=== PATIENT | female | born 1950 | race Caucasian/White ===

== ENCOUNTER 2016-04-16 16:30 | Inpatient (IN) | payer OTHER ==
[~2016-04-16] VITALS: Ht 154.9 cm; Wt 88.8 kg
--- NOTE | ~2016-04-16 | DS ---
PATIENT'S NAME: SHALA MARTINEZ [facility] AGE: 65 Y [address] ROOM: [address] [place], [place] [address] LOCATION: GPCU ADMIT DATE: 04/16/2016 Discharge Summary DISCHARGE DATE: 04/19/2016 FAMILY PHYSICIAN: Jolly Rees MD ATTENDING PHYSICIAN: Ike Collado PRINCIPAL DISCHARGE DIAGNOSIS: Acute hepatic failure. SECONDARY DIAGNOSES: 1. Acute kidney injury. 2. Jaundice. 3. Anemia of acute blood loss. 4. Coagulopathy with vitamin K allergy. 5. Diastolic dysfunction. 6. Left ventricular outflow tract obstruction. 7. Systemic inflammatory response syndrome. 8. Abdominal pain. CONSULTATIONS: 1. Dr. Desai, the same day as the day of admission, GI. 2. Cardiology, Dr. Whit Richardson for Cardiology consult. PROCEDURES: 1. Echocardiogram, brief summary: Left ventricular ejection fraction greater than 75%. Mild concentric left ventricular hypertrophy. Left ventricular mid-cavity obstruction with near obliteration with sigmoid septum. Diastolic dysfunction grade 1. Interatrial septum appears aneurysmal. There was a positive bubble study and the IVC measured 1.89 cm with partial inspiratory collapse. Please refer to the report for further details. 2. Esophagogastroduodenoscopy on 04/18/2016 with findings of esophageal varices, gastritis, and gastric and duodenal erosions. 3. Paracentesis, 04/18/2016, with removal of 1200 mL fluid. 4. Liver biopsy, 04/18/2016, ultrasound-guided. BRIEF HISTORY: Ms. Martinez is a 65-year-old female who was being seen by Dr. Desai in the GI office when she was directly admitted to our hospital for worsening of jaundice with bilirubin of 17 and creatinine of 2.0. She has been being evaluated for the past 4 weeks by her family doctor and GI for these complaints. She had diminished appetite and multiple lab abnormalities with generalized fatigue and malaise at the time of admission. At that time, on initial evaluation, she was lethargic with abdominal distension, anorexia, and been taking minimal p.o. for the past several days. She had also been having some fever and chills as well, but she had no prior history of liver disease, blood transfusion, viral hepatitis, which she was PATIENT'S NAME: SHALA MARTINEZ [facility] AGE: 65 Y [address] ROOM: [id number] [place], [place] [address] LOCATION: GPCU ADMIT DATE: 04/16/2016 Discharge Summary DISCHARGE DATE: 04/19/2016 FAMILY PHYSICIAN: Jolly Rees MD ATTENDING PHYSICIAN: Ike Collado aware, and denied any alcohol use and new medications. Further evaluation ensued with procedures as above. She became hypotensive after the 3 procedures that she had yesterday with a drop in her hemoglobin from 9.3 to 6.9. She was transfused with 2 units of packed cells and an additional unit of FFP. She had 2 units of FFP before the procedures. Her blood pressure and heart rate responded to these and she was doing well; however, because of her multiple liver abnormalities with possible hepatorenal syndrome, we thought it best to pursue transfer to a Tertiary Center. This morning, I spoke with Dr. Shahid who is the Critical Care fellow at the [facility] in [place] and accepted the patient pending their bed availability and we are waiting a bed at this time. Since I spoke with him, her hemoglobin has gone from 8.2 to 7.0. She will be transfused with a unit of packed red cells at this time. Currently, her INR is 2.5, her pro-time is 28.5. There are no active sites of bleeding. Her bandage sites for the liver biopsy and paracentesis are clean and dry as they were this morning. Please refer to lab forms for all of her multiple laboratory abnormalities. I have discussed with the family the need for indication for transfer to higher level of care, possible need for liver transplant, although her eligibility for this would be evaluated at the [facility]. The family is in agreement with transfer at this time. DISCHARGE MEDICATIONS: 1. Zosyn 3.375 g every 8 hours. 2. Protonix drip. 3. Guaifenesin 1200 mg p.o. b.i.d. 4. Zofran q.4 p.r.n. 5. Albuterol inhaler or nebulizer q.6 p.r.n. 6. She is also receiving normal saline at 150 mL/hr. CONDITION AT DISCHARGE: Poor. DARBY ALICEA MD LM/modl PATIENT'S NAME: SHALA MARTINEZ [facility] AGE: 65 Y [address] ROOM: [place] [address] [facility] ADMIT DATE: 04/16/2016 Discharge Summary DISCHARGE DATE: 04/19/2016 FAMILY PHYSICIAN: Jolly Rees MD ATTENDING PHYSICIAN: Ike Collado /[id number] d: 04/20/16 0339 t: 04/23/16 1425, DISCHARGE SUMMARY
--- NOTE | ~2016-04-16 | ECHO ---
Transthoracic Echocardiography Report (TTE) Demographics Patient Name SHALA CASTELLANOS Date of Study 04/17/2016 Patient Number [id number] Visit Number [id number] Date of 1950 Room Number G3211 Accession Number [id number] Gender Female Age 65 year(s) Referring Amari SILVERIO Contracts Advisor Jermaine Olson RVT, Physician Negrita Moeller MD [facility] Lashay Ramires Physician Interpreting Oneal Vital MD Historic Sites Supervisor Physician Supervising Ordering Physician Amari SILVERIO MD/MLP Nurse Stress Lead Electrical Engineer Conclusions Contractility Score Summary Normal Left Ventricular contractility was noted. Summary The estimated left ventricular ejection fraction is > 75%. Mild concentric left ventricular hypertrophy. Mid-cavity obstruction with near-obliteration of left ventricular cavity. Left ventricular outflow tract obstruction with sigmoid septum. Diastolic assessment reveals Grade I diastolic dysfunction. The interatrial septum appears aneurysmal. Informed consent was obtained, bubble study was done, bubbles crossed to the left atrium suggesting a PFO or ASD. IVC measures 1.89 cm with partial inspiratory collapse. There is a mild mean gradient of 14mmHg across the aortic valve. Mild to moderate tricuspid regurgitation by color Doppler. There is mild pulmonary hypertension. The pulmonary pressure (RVSP) is 42 mmHg. The aortic root appears borderline dilated. The maximum diameter measures 2.9 cm. The ascending aorta appears mildly dilated. The maximum diameter measures 3.4 cm. Procedure Type of Study TTE procedure:2D Echocardiogram, M-Mode, Doppler , Color Doppler, Contrast study. Procedure Date Date: 04/17/2016 Start: 02:24 PM Study Location: Echo Lab Technical Quality: Adequate visualization Indications:Heart Murmur. Additional Indications:New murmur Appropriate Use Criteria: 9 Patient Status: Routine HR: 83 bpm BP: 129/76 mmHg M-Mode/2D Measurements LV Diastolic Dimension: 3.12 cm LV Systolic Dimension: 0.76 cm LV Septum Diastolic: 1.08 cm LV PW Diastolic: 1.08 cm AO Root Dimension: 2.9 cm Cardiac Output: 10.35 l/min LA Dimension: 2.7 cm EF Estimated: 75 % LVOT: 1.9 cm LVOT VTI: 44 cm RV Base: 3.37 cm LV Stroke volume: 124.69 ml RV Length: 6.35 cm TAPSE: 2.54 cm TDI-S': 21.4 cm/s Doppler Measurements AV Peak Velocity: 2.52 m/s MV Peak E-Wave: 0.86 m/s AV Peak Gradient: 25.4 mmHg MV Peak A-Wave: 1.1 m/s AV Mean Gradient: 14 mmHg MV E/A Ratio: 0.78 LVOT Peak Velocity: 1.85 m/s MV P1/2t: 73 msec TR Gradient:36.97 mmHg PV Peak Velocity: 1.14 m/s Estimated RAP:5 mmHg PV Peak Gradient: 5.2 mmHg Estimated RVSP: 42 mmHg Estimated PASP: 41.97 mmHg E' Septal Velocity: 0.06 m/s A' Septal Velocity: 0.13 m/s E' Lateral Velocity: 0.09 m/s A' Lateral Velocity: 0.15 m/s Findings Left Ventricle The left ventricle is normal in size. Mild concentric left ventricular hypertrophy. Mid-cavity obstruction with near-obliteration of left ventricular cavity. Left ventricular outflow tract obstruction with sigmoid septum. Diastolic assessment reveals Grade I diastolic dysfunction. Right Ventricle Normal right ventricle structure and function. Left Atrium Normal left atrial size. The interatrial septum appears aneurysmal. Informed consent was obtained, bubble study was done, bubbles crossed to the left atrium suggesting a PFO or ASD. Right Atrium Normal right atrial size. IVC measures 1.89 cm with partial inspiratory collapse. Mitral Valve Trivial mitral regurgitation by color Doppler. Mild mitral annular calcification. Aortic Valve The aortic valve is mildly sclerotic. Tricuspid Valve Mild to moderate tricuspid regurgitation by color Doppler. There is mild pulmonary hypertension. The pulmonary pressure (RVSP) is 42 mmHg. Pulmonic Valve Normal pulmonic valve structure and function. Pericardial Effusion No evidence of pericardial effusion. Miscellaneous Negative bubble study Pleural Effusion No evidence of pleural effusion. Contractility Score LV regional wall motion:(0-Non visualized 1-Normal 2-Hypokinesis 3-Akinesis 4-Dyskinesis 5-Aneurysm) Signature dtt: Amanuel No (cardio) dtd: 04/17/16 1424 Physician Self Edit
--- NOTE | ~2016-04-16 | HP ---
PATIENT'S NAME: SHALA CASTELLANOS [facility] AGE: 65 Y [address] ROOM: [address] [place] [address] LOCATION: [facility] ADMIT DATE: 04/16/2016 History & Physical DISCHARGE DATE: FAMILY PHYSICIAN: Jolly Rees MD ATTENDING PHYSICIAN: GEOVANY PATEL DATE OF SERVICE: CHIEF COMPLAINT: Jaundice, abdominal distention, SHASTA, and acute hepatitis. HISTORY OF PRESENT ILLNESS: This is a 65-year-old female who is direct admitted from GI office for having worsening jaundice as well as a bilirubin of 17 and creatinine 2.0 upon followup visit with Dr. Desai from . The patient reports to me that she had been having increasing yellowing of her skin over the past 4 weeks, which 4 weeks ago, she did see her family doctor who eventually referred her for gastroenterology workup and evaluation. Upon her visit today, the patient was noted to have severely jaundiced with a diminished appetite and multiple lab abnormalities and complaining of generalized fatigue and malaise over the past several weeks prompting for a direct admission. The patient today appears lethargic, complains of abdominal distention, anorexia, and has been unable to tolerate p.o. for the past several days due to this. The patient also reports increasing cough and increased lower extremity swelling over the past 4 weeks progressively worsening to this date. The patient also reports generalized fever and chills during this time as well. The patient denies knowing of any liver disease, no history of blood transfusions, and no viral hepatitis that she is aware of. The patient denies any history of heavy drinking. Denies using any medications that are new that can possibly be the cause for this. PAST MEDICAL HISTORY: Asthma, hyperlipidemia. SOCIAL HISTORY: The patient lives at home with . Denies any history of alcohol, tobacco smoking, or use of any drugs. Denies any history of requiring blood transfusions or IV drug abuse. FAMILY HISTORY: Father, brother, and sister have history of heart disease. Brother apparently has liver problems, which she cannot specify. REVIEW OF SYSTEMS: A 10-point review of systems was conducted and were all negative except as mentioned in the HPI. PATIENT'S NAME: SHALA CASTELLANOS [facility] AGE: 65 Y [address] ROOM: [id number] [place] [id number] LOCATION: [facility] ADMIT DATE: 04/16/2016 History & Physical DISCHARGE DATE: FAMILY PHYSICIAN: Jolly Rees MD ATTENDING PHYSICIAN: GEOVANY PATEL LABORATORY DATA: Significant labs: Creatinine 2.0, baseline around 1. Bilirubin 17. White blood cell count 22,000. PHYSICAL EXAMINATION: VITAL SIGNS: Afebrile, blood pressure 130/70, respiratory rate 22, pulse 108, and saturating 92% on 2 L of oxygen. GENERAL: The patient is jaundiced, lethargic appearing, but in no acute distress. HEENT: Scleral icterus present. No conjunctival pallor. Has dry mucous membranes. SKIN: Diffuse jaundice throughout. HEART: S1, S2, regular rate and rhythm. LUNGS: Diminished breath sounds, but clear to auscultation bilaterally. ABDOMEN: Mildly distended and diffuse tenderness to palpation. Positive bowel sounds. NEURO: Grossly nonfocal. MUSCULOSKELETAL: No swelling, redness, or erythema of joints in all extremities. EXTREMITIES: A +3 pitting edema bilaterally. ASSESSMENT AND PLAN: 1. Systemic inflammatory response syndrome. White blood cell count of 22,000, heart rate 108. Source in the differential includes spontaneous bacterial peritonitis versus ascending cholangitis. We will start on empiric antibiotics with Zosyn and get a CT scan of the abdomen. Of note, ultrasound of the abdomen done about 10 days ago as outpatient did not show significant ascites or findings in the liver suggestive of cirrhosis. Also, getting UA and blood culture and chest x-ray for a complete sepsis workup. If there is significant ascites, we will plan for paracentesis. 2. Acute hepatitis. Full acute hepatitis workup pending. GI Dr. Desai following as outpatient and we will invite for consultation during hospitalization as well. 3. Jaundice. Bilirubin 17 appears to be predominantly related to liver dysfunction. I will also look for possible hemolysis as the cause for this; however, the patient is not anemic, and it is more likely due to problems related to the liver. 4. Acute kidney injury. Creatinine 2.0, the patient's baseline around 1.0. The patient describes significant poor p.o. intake over the past several weeks. We will slowly give intravenous fluids and recheck kidney function. The patient showed significant Lower extremity edema and this could all be related to her liver dysfunction. PT/INR to further assess significance of liver injury and is pending. PATIENT'S NAME: SHALA CASTELLANOS [facility] AGE: 65 Y [address] ROOM: [id number] [place] [id number] LOCATION: [facility] ADMIT DATE: 04/16/2016 History & Physical DISCHARGE DATE: FAMILY PHYSICIAN: Jolly Rees MD ATTENDING PHYSICIAN: GEOVANY PATEL 5. Abdominal pain. We will make sure there is not an underlying spontaneous bacterial peritonitis causing this. If the CT scan shows ascites, we will go ahead and do the paracentesis, and do studies to rule out infection. In the meantime, continue with antibiotic and Zosyn as above. 6. Deep venous thrombosis prophylaxis. We will use sequential compression devices. MD MARILYN MULLINS/kapil /[id number] D: [id number] T: [id number] HISTORY & PHYSICAL
--- NOTE | ~2016-04-16 | CON ---
PATIENT'S NAME: SHALA CASTELLANOS [facility] AGE: 65 Y [address] ROOM: [place] [id number] LOCATION: GPCU ADMIT DATE: 04/16/2016 Consultation DISCHARGE DATE: 04/19/2016 FAMILY PHYSICIAN: Jolly Rees MD ATTENDING PHYSICIAN: Ike Collado DATE OF CONSULTATION: 04/18/2016 REASON FOR CARDIOLOGY CONSULT: Abnormal echocardiogram. HISTORY OF PRESENT ILLNESS: This is a 65-year-old female, admitted with worsening jaundice, abdominal distention, acute kidney injury, and acute hepatitis. This consult was requested due to the presence of a cardiac murmur and then her subsequently undergoing an echocardiogram with findings of a possible left ventricular mass or obstruction and a positive bubble study. She has complaints of shortness of breath, dyspnea on exertion, and sharp chest pain with exertion. She also has complaints of nausea, vomiting, diarrhea, and edema. Overall feels "poorly" and is resting in bed at this time. She is currently under the care of the Hospitalist Service as well as GI Service, and has plans to undergo an endoscopy and liver biopsy. PAST MEDICAL HISTORY: 1. Asthma. 2. Arthritis. 3. Joint stiffness. PAST SURGICAL HISTORY: 1. Tubal ligation. 2. Previous teeth extractions. FAMILY HISTORY: The patient's father had a history of diabetes mellitus and heart issues. She has 2 brothers and a sister with a history of cardiac stenting. SOCIAL HISTORY: The patient denies ever using tobacco. She also denies alcohol or illicit drug use. CURRENT MEDICATIONS: 1. Protonix IV drip. 2. Zosyn 3.375 g IV every 8 hours. 3. Mucinex 1200 mg p.o. twice daily. 4. Aldactone 25 mg p.o. daily. PATIENT'S NAME: SHALA CASTELLANOS [facility] AGE: 65 Y [address] ROOM: [address] [address] LOCATION: GPCU ADMIT DATE: 04/16/2016 Consultation DISCHARGE DATE: 04/19/2016 FAMILY PHYSICIAN: Jolly Rees MD ATTENDING PHYSICIAN: Ike Collado MEDICATION ALLERGIES: 1. Latex causing rash. 2. Vitamin K causing rash and severe swelling. REVIEW OF SYSTEMS: Pertinent positive review of systems noted in the HPI. All other review of systems evaluated and negative. DIAGNOSTICS: CMS evaluation shows sodium of 138, potassium 3.8, BUN of 25, creatinine 1.6, glucose of 63, and a magnesium of 2.2. Her echocardiogram shows an ejection fraction of greater than 75% with an RVSP of 42. She has an AV gradient of 40 mmHg. PHYSICAL EXAMINATION: VITAL SIGNS: Temperature 98.5, pulse 74, respirations 14, blood pressure 113/69, and O2 saturation 95% on room air. The patient weighs 88.8 kg. SKIN: Jaundiced, but warm and dry. EYES: Also noted to be jaundiced, but no noted xanthelasmas. ENT: Oral mucosa is pink and moist. No jugular venous distention or carotid bruits. CHEST: Respirations are even and unlabored. LUNGS: Clear to auscultation. HEART: Regular rate and rhythm. Does have the presence of a 2/6 systolic murmur. ABDOMEN: Soft and nontender. Does have hyperactive bowel sounds x4 quadrants. MUSCULOSKELETAL: Gait is normal. EXTREMITIES: Peripheral pulses palpable. No clubbing or cyanosis noted. Does have 2+ lower extremity edema present. PSYCH: Alert and oriented. Mood and affect are appropriate. IMPRESSION AND PLAN: Per Dr. Whit Richardson: 1. Systolic murmur. 2. Positive bubble study. 3. Acute hepatitis with worsening jaundice. 4. Acute kidney injury. Due to her echocardiogram findings, I do want to avoid IV vasopressors. Her left ventricular is quite hyperdynamic, and she does have an increased LVOT gradient. Of note, she is anemic and there are plans to replace packed red blood cells to help with her blood pressure and to relieve the hypotension. Once her blood pressure is stable and her liver enzymes are stable, consider PATIENT'S NAME: SHALA CASTELLANOS [facility] AGE: 65 Y [address] ROOM: [address] [address] LOCATION: GPCU ADMIT DATE: 04/16/2016 Consultation DISCHARGE DATE: 04/19/2016 FAMILY PHYSICIAN: Jolly Rees MD ATTENDING PHYSICIAN: Ike Collado beta-gwyn or calcium channel gwyn. We will continue to monitor, evaluate, and treat as appropriate. Thank you for this consult. Thank you for allowing [facility] to interact in the care of this patient. ROSA MARIA CASTILLO APRN FOR MD RADHA LOUIE/kapil /[id number] d: 04/19/162229 t: 04/24/16 1734, CONSULTATION REPORT
[2016-04-16] MEDS ORDERED: MUCINEX600 MG PO (17:08)
[2016-04-16] MEDS ORDERED: ALBUTEROL2.5 MG/31 INH (17:08)
[2016-04-16] MEDS ORDERED: SINGULAIR10 MG PO (17:09)
[2016-04-16] MEDS ORDERED: ZOFRAN ODT4 MG PO (17:09)
[2016-04-16] MEDS ORDERED: ROBITUSSIN DM120 ML PO (17:09)
[2016-04-16] MEDS ORDERED: PROVENTIL OR V6.7 GM INH ×2 (17:10→18:23)
--- NOTE | 2016-04-16 17:47 | NUR ---
PATIENT ADMITTED WITH NAUSEA, FREQUENT HEADACHES, ASTHMA, PNEUMONIA, HAYFEVER, SOB, BACK PROBLEMS, JAUNDICE AND BLOATING. AWAITING ORDERS FOR DR. JOHN FOR ADMISSION ORDERS. PATIENT HAS ALOT OF EDEMA TO LOWER LEGS, ABDOMINAL PAIN DIFFUSE. JAUNICE COLOR. NAUSEA , HASN'T EATEN A MEAL FOR A FEW DAYS, MINIMAL FLUIDS. PATIENT STATES HER URINE IS DARK YELLOW PRERNA.
[2016-04-16 20:43] LABS: HEMATOCRIT 34.6 % (33.0-46.0); HEMOGLOBIN 12.5 g/dL (10.0-15.0); MCH 33.2 pg (27.0-34.0); MCHC 36.1 gm/dL (32.0-36.5); MCV 91.8 fl (83.0-98.0); MPV 11.5 fl (9.4-12.4); PLATELET COUNT 154 K/uL (150-450); RBC 3.77 M/uL (3.50-5.50); RDW-CV 20.3 % (11.9-14.6); WBC 14.9 K/uL (4.0-11.0)
[2016-04-16 20:52] LABS: INR - (THERAPEUTIC) 2.3 (0.9-1.1); PROTIME 25.8 SECONDS (9.6-11.1)
[2016-04-16 21:00] LABS: ANION GAP 15.2 (10.0-19.0); CALCIUM 8.1 mg/dL (8.5-10.5); CREATININE 1.9 mg/dL (0.5-1.1); POTASSIUM 4.2 mMol/L (3.7-5.1); TOTAL BILIRUBIN 15.6 mg/dL (0.0-1.5); TOTAL PROTEIN 7.6 g/dL (6.0-8.4)
[2016-04-16 21:01] LABS: ALBUMIN 1.7 gm/dL (3.5-5.0)
[2016-04-16 21:19] LABS: ABSOLUTE NEUTROPHIL CT (ANC) 11.5 K/uL (1.8-7.8); LYMPHOCYTE # 2.2 K/uL (0.8-4.0); LYMPHOCYTE % 15 %; MONOCYTE # 1.2 K/uL (0.0-1.0); SEGMENTED NEUTROPHIL # 11.5 K/uL (1.8-7.8); SEGMENTED NEUTROPHIL % 77 %
[2016-04-17 06:03] LABS: HEMATOCRIT 29.3 % (33.0-46.0); HEMOGLOBIN 10.4 g/dL (10.0-15.0); MCH 32.9 pg (27.0-34.0); MCHC 35.5 gm/dL (32.0-36.5); MCV 92.7 fl (83.0-98.0); MPV 11.6 fl (9.4-12.4); PLATELET COUNT 124 K/uL (150-450); RBC 3.16 M/uL (3.50-5.50); RDW-CV 20.2 % (11.9-14.6); WBC 11.2 K/uL (4.0-11.0)
[2016-04-17 06:21] LABS: ALBUMIN 2.1 gm/dL (3.5-5.0); CALCIUM 7.9 mg/dL (8.5-10.5); CREATININE 1.8 mg/dL (0.5-1.1); MAGNESIUM 2.3 mg/dL (1.3-2.6); PHOSPHORUS 2.6 mg/dL (2.5-4.9)
[2016-04-17 06:39] LABS: BLOOD URINE 150 /UL (NEGATIVE); GLUCOSE URINE NEGATIVE (NEGATIVE); KETONE URINE NEGATIVE (NEGATIVE); LEUKOCYTES URINE 100 /UL (NEGATIVE); NITRITE URINE POSITIVE (NEGATIVE); PROTEIN URINE 30 mg/dL (NEGATIVE); TURBIDITY URINE 1+ (CLEAR); UROBILINOGEN URINE 4 mg/dL (NORMAL)
[2016-04-17 06:48] LABS: COLOR URINE OTHER (YELLOW)
[2016-04-17 07:05] LABS: ABSOLUTE NEUTROPHIL CT (ANC) 9.1 K/uL (1.8-7.8); BANDED NEUTROPHIL # 0.2 K/uL (0.0-0.1); BANDED NEUTROPHILS % 2 %; LYMPHOCYTE % 9 %; MONOCYTE # 0.8 K/uL (0.0-1.0); SEGMENTED NEUTROPHIL # 8.9 K/uL (1.8-7.8); SEGMENTED NEUTROPHIL % 79 %
--- NOTE | 2016-04-17 07:43 | NUR ---
Significant Event: Pt alert and oriented. Very jaundice. Up with A1-2 for safety. Started on protonix for possible GI bleed. Pt had become nauseated and given zofran with no relief. Had a dark brown/black thick sputum that looked to be on the blood side. Had more emesis and very dark brown/black. Pt started on protonix. Albumin q8hr, zosyn q8hr. Abd very distended and edematous. MISTI at +3-4. Given phenegran IM with relief. Voided and UA sent. Follow up:
[2016-04-17 07:48] LABS: AMORPHOUS URINE 1+ (NEGATIVE); BACTERIA URINE MODERATE (NEGATIVE); CRYSTALS URINE CALCIUM OXALATE (NEGATIVE); MUCUS URINE 2+ (NEGATIVE)
--- NOTE | 2016-04-17 13:32 | NUR ---
STUDENT NURSE CHART CHECKED BY TABLE AND DESK FINISHER IVAN ALEMAN RN BSN
--- NOTE | 2016-04-17 16:18 | NUR ---
Significant Event: Patient is alert and oriented x3. VSS- blood pressure in the low 100's. On room air. Up with 1-2PA. Voiding small amounts. MD aware- musth have 25ml/hr output, patel to be placed now. IV in the L)FA, fluids infusing. 500ml bolus given x1. Protonix drip infusing. Other IV started in the L)wrist- anterior- fluids infusing. Int. IV ABX. Has 2-d echo done today. Paracentesis was scheduled for today but is on hold- will be done tomorrow if INR is low enough. INR was 2.3. FFP ordered for 5 AM- 2 units. If INR is >1.5 please call the hospitalist. Please see chart for orders. States she has a allergy to vitamin K. Will also have an EGD in the AM. NPO in AM was the order written. Consents need signed. Cooperative with cares. Many family members at the bedside.
--- NOTE | 2016-04-17 18:13 | NUR ---
SPOKE TO PATIENT AND HER FAMILY AT THE BEDSIDE. INTRODUCED CM AND OUR ROLE. PATIENT LIVES IN OWN HOME WITH SUPPORT FROM HER FAMILY. PATIENT IS PLANNING ON RETURNING HOME ONCE SHE IS READY FOR DISCHARGE. HER FAMILY VOICE CONCERNS ABOUT HER BEING WEAK AND DO NOT FEEL SHE IS READY FOR DISCHARGE. I EXPLAINED TO THEM THAT WE WILL FOLLOW AND MAKE SURE THAT THERE IS A SAFE DISCHARGE PLAN IN PLACE.
[2016-04-17 21:32] LABS: ALBUMIN 2.8 gm/dL (3.5-5.0); TOTAL PROTEIN 6.6 g/dL (6.0-8.4)
--- NOTE | 2016-04-18 04:44 | NUR ---
Significant Event: Pt is alert and oriented. Pt was hypotensive with SBP's 95-106. RA. IV to the L)FA and R)FA, with IVF running. Saldivar draining tea colored urine, are to call hospitalist if urine is less than 25mls/hour. Pt is very jaundice. Ambulates 2 assist. 2 units of FFP will be given at 0500, paracentesis to be done today, we are to call if INR is greater than 1.5. NPO since midnight for the EGD that is being done today, consents signed and checklist started. Pt has many family members throughout the day, but may need to be told that the pt needs rest. Daughter and at bedside tonight. Follow Up: Continue to monitor IV sites. Try to be in the room when doctor rounds, family asks many questions.
[2016-04-18 05:56] LABS: HEMATOCRIT 25.3 % (33.0-46.0); MCH 33.6 pg (27.0-34.0); MCHC 35.6 gm/dL (32.0-36.5); MCV 94.4 fl (83.0-98.0); MPV 11.6 fl (9.4-12.4); RBC 2.68 M/uL (3.50-5.50); RDW-CV 20.7 % (11.9-14.6); WBC 6.1 K/uL (4.0-11.0)
[2016-04-18 05:58] LABS: PLATELET COUNT 79 K/uL (150-450)
[2016-04-18 06:11] LABS: ALBUMIN 2.8 gm/dL (3.5-5.0); ANION GAP 14.8 (10.0-19.0); CALCIUM 7.9 mg/dL (8.5-10.5); CREATININE 1.6 mg/dL (0.5-1.1); MAGNESIUM 2.2 mg/dL (1.3-2.6); PHOSPHORUS 2.4 mg/dL (2.5-4.9); POTASSIUM 3.8 mMol/L (3.7-5.1)
[2016-04-18 07:03] LABS: ABSOLUTE NEUTROPHIL CT (ANC) 4.3 K/uL (1.8-7.8); BANDED NEUTROPHIL # 0.1 K/uL (0.0-0.1); BANDED NEUTROPHILS % 2 %; LYMPHOCYTE # 0.9 K/uL (0.8-4.0); LYMPHOCYTE % 14 %; MONOCYTE # 0.7 K/uL (0.0-1.0); SEGMENTED NEUTROPHIL # 4.2 K/uL (1.8-7.8); SEGMENTED NEUTROPHIL % 69 %
[2016-04-18 10:11] LABS: BASOPHIL % 0.6 %; EOSINOPHIL # 0.2 K/uL (0.0-0.5); EOSINOPHIL % 3.4 %; HEMATOCRIT 26.3 % (33.0-46.0); HEMOGLOBIN 9.2 g/dL (10.0-15.0); IMMATURE GRANULOCYTE # 0.3 K/uL (0.0-0.3); LYMPHOCYTE # 1.2 K/uL (0.8-4.0); LYMPHOCYTE % 18.5 %; MCH 33.2 pg (27.0-34.0); MCV 94.9 fl (83.0-98.0); MONOCYTE # 0.7 K/uL (0.0-1.0); MONOCYTE % 10.3 %; MPV 11.6 fl (9.4-12.4); NEUTROPHIL # (ANC) 4.2 K/uL (1.8-7.8); NEUTROPHIL % 63.2 %; NRBC % 0 /100WBC (0-0.00); PLATELET COUNT 81 K/uL (150-450); RBC 2.77 M/uL (3.50-5.50); RDW-CV 20.8 % (11.9-14.6); WBC 6.7 K/uL (4.0-11.0)
[2016-04-18 10:35] LABS: INR - (THERAPEUTIC) 2.1 (0.9-1.1); PROTIME 23.5 SECONDS (9.6-11.1)
--- NOTE | 2016-04-18 11:25 | NUR ---
STUDENT NURSE CHARTING CHECKED BY LEAD LAYING AND GLUING MACHINE OPERATOR IVAN ALEMAN RN BSN
[2016-04-18 14:15] LABS: PROTIME 21.8 SECONDS (9.6-11.1)
[2016-04-18 14:22] LABS: ALPHA-1-ANTITRYPSIN 86 mg/dL (100-200); CERULOPLASMIN 21 mg/dL (7-220)
[2016-04-18 14:41] LABS: PERITONEAL FLUID TURBIDITY CLEAR (CLEAR)
[2016-04-18 14:45] LABS: AMYLASE - FLUID 30 IU/L
[2016-04-18 15:28] LABS: % PERITONEAL FLUID MONO/MACRO 57 % (0-0); % PERITONEAL FLUID NEUT 22 % (0-25)
[2016-04-18 17:48] LABS: HEMATOCRIT 20.1 % (33.0-46.0); HEMOGLOBIN 6.9 g/dL (10.0-15.0)
[2016-04-18 18:05] LABS: ANION GAP 12.1 (10.0-19.0); CALCIUM 7.7 mg/dL (8.5-10.5); CREATININE 1.7 mg/dL (0.5-1.1); POTASSIUM 4.1 mMol/L (3.7-5.1)
--- NOTE | 2016-04-18 19:50 | NUR ---
Significant event: Patient is alert and oriented. VSS earlier in shift. On room air. Has Iv's to left and 2 to the right forearms. Had an EGD this morning and then had a liver bx and paracentesis. Took 1200ml off of abdomen. Patient Vss stable upon arrival to floor, upon the 2 30-min b/p check she was hypotensive, hospitalist called and gave 2-500ml boluses of normal saline. Did labs, will need 2 units of PRBC. Remains hypotensive upon arrival of cnc machinist 2nd shift, will continue to monitor b/p and give blood NORBERTO. Patient has a patel cath in place which is patent. Pt has jaundice skin and sclera. Complains of mid abd pain, tried warm blankets, and now ice is in place. Pt is nauseated. Unable to give anything at this time due to blood pressure. Patient's surgical site is to the left flank from liver bx. It is covered with gauze and tegaderm and is C/D/I. Has remained coherent thoroughout and able to answer questions.
--- NOTE | 2016-04-18 23:03 | NUR ---
PATIENT WAS HYPOTENSIVE UPON REPORT FROM DAY NURSE. BLOOD PRESSURE IN 80/50S. HEART RATE IN 90S. ON ROOM AIR. TELEMETRY PLACED. BLOOD ORDER SENT DOWN TO LAB STAT. PRBCS STARTED AT 1943 WHEN LAB WAS DONE GETTING BLOOD READY. AFTER 15 MIN. BLOOD VITALS BLOOD PRESSURE WAS 90/59. PATIENT AFEBRILE. DR. ALICEA STATED SHE WANTED HER PATIENT TO BE SAFE AND SHE ORDERED TO TRANSFER TO PCU TO BE MONITORED MORE CLOSELY. REPORT GIVEN TO YANIRA VALENTINE AND TRANSFERRED AT 2034. YANIRA ENCOURAGED TO CALL WITH QUESTIONS.
--- NOTE | 2016-04-19 04:51 | NUR ---
Significant Event: Patient A/Ox3. Somewhat hypotensive most of shift, but an improvement from when she was on [facility]. Patient is very jaundiced. Hgb earlier today was 6.9 which was a drop from 9.2. 1 unit PRBC transfused followed by 1 unit FFP and 1 more unit of PRBC. No reactions. Patient's blood pressures have improved and have been 100s-110s over the past few hours. Total UOP for this shift was 450. Patient has 3+ edema to lower extremities. Paracentesis yesterday with 1200ml removed. EGD yesterday. Liver biopsy yesterday. Patient was very nauseous upon arriving to the floor. Once blood pressures were stable, gave Zofran 4mg and patient now feels much better. Protonix gtt running at 10ml/hr. NS at 150ml/hr. Patient on 1L due to increased oxygen needs earlier in the night, but should be able to be weaned back to room air today. Follow Up: Continue plan of care. Monitor Hgb.
[2016-04-19 04:57] LABS: HEMATOCRIT 23.7 % (33.0-46.0); HEMOGLOBIN 8.2 g/dL (10.0-15.0); MCH 31.5 pg (27.0-34.0); MCHC 34.6 gm/dL (32.0-36.5); MCV 91.2 fl (83.0-98.0); MPV 10.9 fl (9.4-12.4); PLATELET COUNT 70 K/uL (150-450); RDW-CV 21.4 % (11.9-14.6); WBC 13.6 K/uL (4.0-11.0)
[2016-04-19 05:40] LABS: BANDED NEUTROPHIL # 0.5 K/uL (0.0-0.1); BANDED NEUTROPHILS % 4 %; LYMPHOCYTE # 0.8 K/uL (0.8-4.0); LYMPHOCYTE % 6 %; MONOCYTE # 0.8 K/uL (0.0-1.0); SEGMENTED NEUTROPHIL # 11.4 K/uL (1.8-7.8); SEGMENTED NEUTROPHIL % 84 %
[2016-04-19 07:02] LABS: ALBUMIN 3.1 gm/dL (3.5-5.0); CALCIUM 8.1 mg/dL (8.5-10.5); CREATININE 1.8 mg/dL (0.5-1.1); MAGNESIUM 2.1 mg/dL (1.3-2.6); PHOSPHORUS 3.6 mg/dL (2.5-4.9); TOTAL BILIRUBIN 13.7 mg/dL (0.0-1.5); TOTAL PROTEIN 5.6 g/dL (6.0-8.4)
[2016-04-19 07:04] LABS: ANION GAP 18.1 (10.0-19.0); POTASSIUM 5.1 mMol/L (3.7-5.1)
[2016-04-19 11:06] LABS: HEMATOCRIT 20.8 % (33.0-46.0)
[2016-04-19 11:17] LABS: INR - (THERAPEUTIC) 2.5 (0.9-1.1); PROTIME 28.6 SECONDS (9.6-11.1)
--- NOTE | 2016-04-19 14:47 | NUR ---
Call from Hali Ross with [facility], she states that they are looking to transport Issac to [facility] later today. I connected with RN Libby, obtained the needed paperwork and placed it on the chart for Dr. Brown to fill out. Libby states that per Dr. Brown, [facility] won't have a bed until later this evening. I let her know this was fine. I did call and talk with store warehouse associate at [facility], Lavelle, faxed her over facesheet on Issac. She again stated that they didn't have a bed at this time, but Dr. Romulo hSahid had accepted Issac when she was ready to come to them. Lavelle tells me that she will call the [facility] when they have a bed open so we can send Issac to them. I tentatively set up an ambulance transfer for 1800 today with Ellen marcos in EMS. She is currently working on getting a crew together to transport Issac to [facility] later this even. She will call me back when a crew is confirmed and which one it will be. Family and patient are all in agreement with transfer to [facility] later this evening.
--- NOTE | 2016-04-19 17:32 | NUR ---
Transfer Note: A/Ox3. SBP-90-100s with MAPS >60. P-90-110s. 100.3 temp that has since decreased to 98.9. Room air with saturations low to mid 90s. Tachypnic at times. L) WRist IV running NS at 150ml/hr and protonix at 10mg/Hr. R) AFA running zyvox at 150ml/hr. L) AFA saline locked. Phan draining tea colored urine 150ml out this shift. Patient has generalized jaundice. Denies pain and SOB. Decreased appetite. Zofran given x1 with relif for nausea. 1 Units of PRBC given this shift for HBG of 7.0. Patient has been bedrest. No BM since the . Hypoactive bowel sounds.
== END 2016-04-19 18:25 | disposition hospice, home (50) | DRG 442 ==
LOC: GMSU 16:31 → GPCU 04-18 20:37
PROVIDERS: Internal Medicine; Internal Medicine Adolescent Medicine; Physician Assistant; Radiology Diagnostic Radiology; ADMIT Internal Medicine
PROC: 0FB13ZX Excision of Right Lobe Liver, Percutaneous Approach, Diagnostic (ICD-10-PCS; principal; 2016-04-18)
PROC: 0W9G3ZX Drainage of Peritoneal Cavity, Percutaneous Approach, Diagnostic (ICD-10-PCS; 2016-04-18)
PROC: 30233N1 Transfusion of Nonautologous Red Blood Cells into Peripheral Vein, Percutaneous Approach (ICD-10-PCS; 2016-04-18)
PROC: 30233K1 Transfusion of Nonautologous Frozen Plasma into Peripheral Vein, Percutaneous Approach (ICD-10-PCS; 2016-04-18)
DX: K72.00 Acute and subacute hepatic failure without coma (principal); N17.9 Acute kidney failure, unspecified; D68.9 Coagulation defect, unspecified; K26.9 Duodenal ulcer, unspecified as acute or chronic, without hemorrhage or perforation; R18.8 Other ascites; D62 Acute posthemorrhagic anemia; I85.00 Esophageal varices without bleeding; Z91.09 Other allergy status, other than to drugs and biological substances; K29.70 Gastritis, unspecified, without bleeding; K25.9 Gastric ulcer, unspecified as acute or chronic, without hemorrhage or perforation; J45.909 Unspecified asthma, uncomplicated; E78.5 Hyperlipidemia, unspecified; M19.90 Unspecified osteoarthritis, unspecified site; K75.4 Autoimmune hepatitis
CPT/HCPCS: C9113; J1644; J2020; J2405; J2543; J2550; J7030; J7040; J7050; P9016; P9017; P9047

== ENCOUNTER → 2016-04-16 | Outpatient (CLI) | payer OTHER, SELFPAY ==
[~2016-04-16] MED LIST: ALBUTEROL2.5 MG/31 INH; MUCINEX600 MG PO; PROVENTIL OR V6.7 GM INH; ROBITUSSIN DM120 ML PO; SINGULAIR10 MG PO; ZOFRAN ODT4 MG PO
[2016-04-16 16:05] LABS: INR - (THERAPEUTIC) 2.2 (0.9-1.1); PROTIME 24.9 SECONDS (9.6-11.1)
== END | disposition disaster alternative care site (69) ==
LOC: LGSMG 15:50
PROVIDERS: Internal Medicine Adolescent Medicine
DX: R17 Unspecified jaundice (principal)

== ENCOUNTER → 2016-06-04 | Outpatient (CLI) | payer OTHER ==
[2016-06-04 11:17] LABS: HEMOGLOBIN 9.6 g/dL (10.0-15.0); MCH 30.3 pg (27.0-34.0); MCV 95.3 fl (83.0-98.0); MPV 9.4 fl (9.4-12.4); RBC 3.17 M/uL (3.50-5.50); WBC 6.1 K/uL (4.0-11.0)
[2016-06-04 11:18] LABS: HEMATOCRIT 30.2 % (33.0-46.0); MCHC 31.8 gm/dL (32.0-36.5); PLATELET COUNT 427 K/uL (150-450); RDW-CV 18.2 % (11.9-14.6)
[2016-06-04 11:33] LABS: ALBUMIN 3.5 gm/dL (3.5-5.0); ANION GAP 13.8 (10.0-19.0); CALCIUM 9.3 mg/dL (8.5-10.5); CREATININE 1.4 mg/dL (0.5-1.1); MAGNESIUM 1.9 mg/dL (1.8-2.6); PHOSPHORUS 4.5 mg/dL (2.5-4.9); POTASSIUM 4.8 mMol/L (3.7-5.1); TOTAL BILIRUBIN 0.9 mg/dL (0.0-1.5); TOTAL PROTEIN 7.2 g/dL (6.0-8.4)
[2016-06-04 12:06] LABS: ABSOLUTE NEUTROPHIL CT (ANC) 5.2 K/uL (1.8-7.8); BANDED NEUTROPHIL # 0.2 K/uL (0.0-0.1); BANDED NEUTROPHILS % 4 %; LYMPHOCYTE # 0.5 K/uL (0.8-4.0); LYMPHOCYTE % 9 %; MONOCYTE # 0.2 K/uL (0.0-1.0); SEGMENTED NEUTROPHIL # 4.9 K/uL (1.8-7.8); SEGMENTED NEUTROPHIL % 81 %
== END ==
LOC: LHHCN 10:53
PROVIDERS: Internal Medicine Gastroenterology
DX: Z94.4 Liver transplant status (principal)

== ENCOUNTER → 2016-06-07 | Outpatient (CLI) | payer OTHER ==
[2016-06-07 10:31] LABS: HEMATOCRIT 28.2 % (33.0-46.0); HEMOGLOBIN 8.9 g/dL (10.0-15.0); MCH 30.2 pg (27.0-34.0); MCHC 31.6 gm/dL (32.0-36.5); MCV 95.6 fl (83.0-98.0); MPV 9.9 fl (9.4-12.4); PLATELET COUNT 335 K/uL (150-450); RBC 2.95 M/uL (3.50-5.50); RDW-CV 18.5 % (11.9-14.6); WBC 4.7 K/uL (4.0-11.0)
[2016-06-07 10:40] LABS: ALBUMIN 3.2 gm/dL (3.5-5.0); ANION GAP 13.1 (10.0-19.0); CALCIUM 8.9 mg/dL (8.5-10.5); CREATININE 1.6 mg/dL (0.5-1.1); MAGNESIUM 1.9 mg/dL (1.8-2.6); PHOSPHORUS 4.1 mg/dL (2.5-4.9); POTASSIUM 5.1 mMol/L (3.7-5.1); TOTAL BILIRUBIN 0.7 mg/dL (0.0-1.5)
[2016-06-07 11:03] LABS: ABSOLUTE NEUTROPHIL CT (ANC) 4.3 K/uL (1.8-7.8); BANDED NEUTROPHIL # 0.1 K/uL (0.0-0.1); BANDED NEUTROPHILS % 3 %; LYMPHOCYTE # 0.2 K/uL (0.8-4.0); LYMPHOCYTE % 4 %; MONOCYTE # 0.1 K/uL (0.0-1.0); SEGMENTED NEUTROPHIL # 4.1 K/uL (1.8-7.8); SEGMENTED NEUTROPHIL % 88 %
== END ==
LOC: LHHCN 10:13
PROVIDERS: Family Medicine
DX: Z94.4 Liver transplant status (principal); Z79.899 Other long term (current) drug therapy; T86.9 Complication of unspecified transplanted organ and tissue

== ENCOUNTER → 2016-06-11 | Outpatient (CLI) | payer OTHER ==
[2016-06-11 10:42] LABS: MCH 30.3 pg (27.0-34.0); MCV 97.6 fl (83.0-98.0); MPV 10.3 fl (9.4-12.4); RBC 2.97 M/uL (3.50-5.50); RDW-CV 18.9 % (11.9-14.6); WBC 3.9 K/uL (4.0-11.0)
[2016-06-11 10:46] LABS: PLATELET COUNT 248 K/uL (150-450)
[2016-06-11 10:55] LABS: ALBUMIN 3.3 gm/dL (3.5-5.0); ANION GAP 15.9 (10.0-19.0); CALCIUM 8.8 mg/dL (8.5-10.5); CREATININE 1.5 mg/dL (0.5-1.1); MAGNESIUM 1.9 mg/dL (1.8-2.6); PHOSPHORUS 4.4 mg/dL (2.5-4.9); POTASSIUM 4.9 mMol/L (3.7-5.1); TOTAL BILIRUBIN 0.7 mg/dL (0.0-1.5); TOTAL PROTEIN 6.6 g/dL (6.0-8.4)
[2016-06-11 11:58] LABS: ABSOLUTE NEUTROPHIL CT (ANC) 3.5 K/uL (1.8-7.8); BANDED NEUTROPHIL # 0.1 K/uL (0.0-0.1); BANDED NEUTROPHILS % 2 %; LYMPHOCYTE # 0.2 K/uL (0.8-4.0); LYMPHOCYTE % 5 %; MONOCYTE # 0.1 K/uL (0.0-1.0); SEGMENTED NEUTROPHIL # 3.4 K/uL (1.8-7.8); SEGMENTED NEUTROPHIL % 87 %
== END ==
LOC: LHHCN 10:28
PROVIDERS: Family Medicine
DX: Z94.4 Liver transplant status (principal); Z79.899 Other long term (current) drug therapy; T86.9 Complication of unspecified transplanted organ and tissue

== ENCOUNTER → 2016-06-14 | Outpatient (CLI) | payer OTHER ==
[2016-06-14 10:59] LABS: ALBUMIN 3.3 gm/dL (3.5-5.0); ANION GAP 12.8 (10.0-19.0); CALCIUM 8.8 mg/dL (8.5-10.5); CREATININE 1.8 mg/dL (0.5-1.1); MAGNESIUM 1.8 mg/dL (1.8-2.6); PHOSPHORUS 3.9 mg/dL (2.5-4.9); POTASSIUM 4.8 mMol/L (3.7-5.1); TOTAL BILIRUBIN 0.6 mg/dL (0.0-1.5); TOTAL PROTEIN 6.8 g/dL (6.0-8.4)
[2016-06-14 11:22] LABS: HEMATOCRIT 27.7 % (33.0-46.0); HEMOGLOBIN 8.7 g/dL (10.0-15.0); MCH 30.9 pg (27.0-34.0); MCHC 31.4 gm/dL (32.0-36.5); MCV 98.2 fl (83.0-98.0); MPV 10.3 fl (9.4-12.4); PLATELET COUNT 228 K/uL (150-450); RBC 2.82 M/uL (3.50-5.50); RDW-CV 18.8 % (11.9-14.6); WBC 3.7 K/uL (4.0-11.0)
[2016-06-14 12:33] LABS: ABSOLUTE NEUTROPHIL CT (ANC) 3.2 K/uL (1.8-7.8); BANDED NEUTROPHIL # 0.1 K/uL (0.0-0.1); BANDED NEUTROPHILS % 3 %; LYMPHOCYTE # 0.3 K/uL (0.8-4.0); LYMPHOCYTE % 8 %; MONOCYTE # 0.2 K/uL (0.0-1.0); SEGMENTED NEUTROPHIL # 3.1 K/uL (1.8-7.8); SEGMENTED NEUTROPHIL % 83 %
== END ==
LOC: LHHCN 10:37
PROVIDERS: Family Medicine
DX: Z94.4 Liver transplant status (principal)

== ENCOUNTER → 2016-06-18 | Outpatient (CLI) | payer OTHER ==
[2016-06-18 10:07] LABS: ALBUMIN 3.3 gm/dL (3.5-5.0); ANION GAP 12.6 (10.0-19.0); CALCIUM 8.7 mg/dL (8.5-10.5); CREATININE 1.5 mg/dL (0.5-1.1); HEMATOCRIT 28.6 % (33.0-46.0); HEMOGLOBIN 9.1 g/dL (10.0-15.0); MAGNESIUM 1.8 mg/dL (1.8-2.6); MCHC 31.8 gm/dL (32.0-36.5); MCV 97.3 fl (83.0-98.0); MPV 9.7 fl (9.4-12.4); PHOSPHORUS 4.3 mg/dL (2.5-4.9); PLATELET COUNT 216 K/uL (150-450); POTASSIUM 4.6 mMol/L (3.7-5.1); RBC 2.94 M/uL (3.50-5.50); TOTAL BILIRUBIN 0.6 mg/dL (0.0-1.5); TOTAL PROTEIN 6.8 g/dL (6.0-8.4)
[2016-06-18 10:38] LABS: ABSOLUTE NEUTROPHIL CT (ANC) 3.4 K/uL (1.8-7.8); BANDED NEUTROPHIL # 0.1 K/uL (0.0-0.1); BANDED NEUTROPHILS % 3 %; LYMPHOCYTE # 0.2 K/uL (0.8-4.0); LYMPHOCYTE % 5 %; MONOCYTE # 0.4 K/uL (0.0-1.0); SEGMENTED NEUTROPHIL # 3.3 K/uL (1.8-7.8); SEGMENTED NEUTROPHIL % 82 %
== END ==
LOC: LHHCN 09:41
PROVIDERS: Internal Medicine Gastroenterology
DX: Z94.4 Liver transplant status (principal)

== ENCOUNTER → 2016-06-21 | Outpatient (CLI) | payer OTHER ==
[2016-06-21 10:21] LABS: MCH 31.6 pg (27.0-34.0); MCHC 32.1 gm/dL (32.0-36.5); MCV 98.2 fl (83.0-98.0); MPV 9.9 fl (9.4-12.4); PLATELET COUNT 224 K/uL (150-450); RBC 2.85 M/uL (3.50-5.50); RDW-CV 19.2 % (11.9-14.6); WBC 4.3 K/uL (4.0-11.0)
[2016-06-21 10:33] LABS: ALBUMIN 3.3 gm/dL (3.5-5.0); ANION GAP 9.7 (10.0-19.0); CALCIUM 8.8 mg/dL (8.5-10.5); CREATININE 1.7 mg/dL (0.5-1.1); MAGNESIUM 1.7 mg/dL (1.8-2.6); POTASSIUM 4.7 mMol/L (3.7-5.1); TOTAL BILIRUBIN 0.5 mg/dL (0.0-1.5); TOTAL PROTEIN 6.7 g/dL (6.0-8.4)
[2016-06-21 11:02] LABS: ABSOLUTE NEUTROPHIL CT (ANC) 3.5 K/uL (1.8-7.8); BANDED NEUTROPHIL # 0.1 K/uL (0.0-0.1); BANDED NEUTROPHILS % 2 %; LYMPHOCYTE # 0.3 K/uL (0.8-4.0); LYMPHOCYTE % 8 %; MONOCYTE # 0.3 K/uL (0.0-1.0); SEGMENTED NEUTROPHIL # 3.4 K/uL (1.8-7.8); SEGMENTED NEUTROPHIL % 80 %
== END ==
LOC: LHHCN 09:54
PROVIDERS: Internal Medicine Gastroenterology
DX: Z94.4 Liver transplant status (principal)

== ENCOUNTER → 2016-06-25 | Outpatient (CLI) | payer OTHER ==
[2016-06-25 10:40] LABS: HEMATOCRIT 29.2 % (33.0-46.0); HEMOGLOBIN 9.2 g/dL (10.0-15.0); MCHC 31.5 gm/dL (32.0-36.5); MCV 98.3 fl (83.0-98.0); MPV 10.1 fl (9.4-12.4); PLATELET COUNT 245 K/uL (150-450); RBC 2.97 M/uL (3.50-5.50); WBC 4.3 K/uL (4.0-11.0)
[2016-06-25 10:51] LABS: ALBUMIN 3.4 gm/dL (3.5-5.0); ANION GAP 14.5 (10.0-19.0); CALCIUM 8.7 mg/dL (8.5-10.5); CREATININE 1.5 mg/dL (0.5-1.1); PHOSPHORUS 3.9 mg/dL (2.5-4.9); POTASSIUM 4.5 mMol/L (3.7-5.1); TOTAL BILIRUBIN 0.4 mg/dL (0.0-1.5); TOTAL PROTEIN 6.8 g/dL (6.0-8.4)
[2016-06-25 11:55] LABS: ABSOLUTE NEUTROPHIL CT (ANC) 3.9 K/uL (1.8-7.8); BANDED NEUTROPHIL # 0.1 K/uL (0.0-0.1); BANDED NEUTROPHILS % 3 %; LYMPHOCYTE # 0.2 K/uL (0.8-4.0); LYMPHOCYTE % 5 %; MONOCYTE # 0.1 K/uL (0.0-1.0); SEGMENTED NEUTROPHIL # 3.8 K/uL (1.8-7.8); SEGMENTED NEUTROPHIL % 88 %
== END ==
LOC: LHHCN 10:32
PROVIDERS: Internal Medicine Gastroenterology
DX: Z94.9 Transplanted organ and tissue status, unspecified (principal); Z79.899 Other long term (current) drug therapy; T86.9 Complication of unspecified transplanted organ and tissue

== ENCOUNTER → 2016-06-28 | Outpatient (CLI) | payer OTHER ==
[2016-06-28 10:20] LABS: HEMATOCRIT 29.4 % (33.0-46.0); HEMOGLOBIN 9.1 g/dL (10.0-15.0); MCH 30.5 pg (27.0-34.0); MCV 98.7 fl (83.0-98.0); MPV 9.8 fl (9.4-12.4); PLATELET COUNT 246 K/uL (150-450); RBC 2.98 M/uL (3.50-5.50); RDW-CV 18.9 % (11.9-14.6); WBC 4.2 K/uL (4.0-11.0)
[2016-06-28 10:33] LABS: ALBUMIN 3.4 gm/dL (3.5-5.0); ANION GAP 13.9 (10.0-19.0); CALCIUM 8.8 mg/dL (8.5-10.5); CREATININE 1.6 mg/dL (0.5-1.1); MAGNESIUM 1.9 mg/dL (1.8-2.6); POTASSIUM 4.9 mMol/L (3.7-5.1); TOTAL BILIRUBIN 0.4 mg/dL (0.0-1.5); TOTAL PROTEIN 6.6 g/dL (6.0-8.4)
[2016-06-28 11:10] LABS: ABSOLUTE NEUTROPHIL CT (ANC) 3.1 K/uL (1.8-7.8); BANDED NEUTROPHIL # 0.1 K/uL (0.0-0.1); BANDED NEUTROPHILS % 3 %; LYMPHOCYTE # 0.8 K/uL (0.8-4.0); LYMPHOCYTE % 18 %; MONOCYTE # 0.3 K/uL (0.0-1.0); SEGMENTED NEUTROPHIL # 2.9 K/uL (1.8-7.8); SEGMENTED NEUTROPHIL % 70 %
== END | disposition disaster alternative care site (69) ==
LOC: LHHCN 10:16
PROVIDERS: Internal Medicine Gastroenterology
DX: Z94.4 Liver transplant status (principal); Z79.899 Other long term (current) drug therapy; T86.9 Complication of unspecified transplanted organ and tissue

== ENCOUNTER → 2016-07-02 | Outpatient (CLI) | payer OTHER ==
[2016-07-02 10:02] LABS: ALBUMIN 3.5 gm/dL (3.5-5.0); ANION GAP 14.5 (10.0-19.0); CALCIUM 8.8 mg/dL (8.5-10.5); CREATININE 1.5 mg/dL (0.5-1.1); MAGNESIUM 1.9 mg/dL (1.8-2.6); PHOSPHORUS 4.5 mg/dL (2.5-4.9); POTASSIUM 4.5 mMol/L (3.7-5.1); TOTAL BILIRUBIN 0.4 mg/dL (0.0-1.5); TOTAL PROTEIN 6.7 g/dL (6.0-8.4)
[2016-07-02 10:14] LABS: HEMATOCRIT 28.8 % (33.0-46.0); HEMOGLOBIN 9.2 g/dL (10.0-15.0); MCH 31.6 pg (27.0-34.0); MCHC 31.9 gm/dL (32.0-36.5); MPV 9.7 fl (9.4-12.4); PLATELET COUNT 274 K/uL (150-450); RBC 2.91 M/uL (3.50-5.50); RDW-CV 18.9 % (11.9-14.6); WBC 3.2 K/uL (4.0-11.0)
[2016-07-02 11:39] LABS: ABSOLUTE NEUTROPHIL CT (ANC) 2.4 K/uL (1.8-7.8); BANDED NEUTROPHIL # 0.1 K/uL (0.0-0.1); BANDED NEUTROPHILS % 2 %; LYMPHOCYTE # 0.3 K/uL (0.8-4.0); LYMPHOCYTE % 10 %; MONOCYTE # 0.3 K/uL (0.0-1.0); SEGMENTED NEUTROPHIL # 2.3 K/uL (1.8-7.8); SEGMENTED NEUTROPHIL % 73 %
== END ==
LOC: LHHCN 09:38
PROVIDERS: Internal Medicine Gastroenterology
DX: Z94.4 Liver transplant status (principal); Z79.899 Other long term (current) drug therapy; T86.9 Complication of unspecified transplanted organ and tissue

== ENCOUNTER → 2016-07-05 | Outpatient (CLI) | payer OTHER ==
[2016-07-05 11:16] LABS: HEMATOCRIT 30.1 % (33.0-46.0); HEMOGLOBIN 9.5 g/dL (10.0-15.0); MCH 31.5 pg (27.0-34.0); MCHC 31.6 gm/dL (32.0-36.5); MCV 99.7 fl (83.0-98.0); MPV 9.8 fl (9.4-12.4); PLATELET COUNT 257 K/uL (150-450); RBC 3.02 M/uL (3.50-5.50); RDW-CV 18.6 % (11.9-14.6); WBC 3.4 K/uL (4.0-11.0)
[2016-07-05 11:19] LABS: ALBUMIN 3.6 gm/dL (3.5-5.0); ANION GAP 16.9 (10.0-19.0); CALCIUM 8.7 mg/dL (8.5-10.5); CREATININE 1.7 mg/dL (0.5-1.1); MAGNESIUM 1.8 mg/dL (1.8-2.6); PHOSPHORUS 4.2 mg/dL (2.5-4.9); POTASSIUM 4.9 mMol/L (3.7-5.1); TOTAL BILIRUBIN 0.4 mg/dL (0.0-1.5); TOTAL PROTEIN 6.8 g/dL (6.0-8.4)
[2016-07-05 12:25] LABS: ABSOLUTE NEUTROPHIL CT (ANC) 2.6 K/uL (1.8-7.8); LYMPHOCYTE # 0.5 K/uL (0.8-4.0); LYMPHOCYTE % 15 %; MONOCYTE # 0.2 K/uL (0.0-1.0); SEGMENTED NEUTROPHIL # 2.6 K/uL (1.8-7.8); SEGMENTED NEUTROPHIL % 77 %
== END | disposition disaster alternative care site (69) ==
LOC: LHHCN 10:23
PROVIDERS: Internal Medicine Gastroenterology
DX: Z94.4 Liver transplant status (principal); Z79.899 Other long term (current) drug therapy; T86.9 Complication of unspecified transplanted organ and tissue

== ENCOUNTER → 2016-07-09 | Outpatient (CLI) | payer OTHER ==
[2016-07-09 09:54] LABS: HEMOGLOBIN 9.1 g/dL (10.0-15.0); MCH 31.3 pg (27.0-34.0); MCHC 31.4 gm/dL (32.0-36.5); MCV 99.7 fl (83.0-98.0); MPV 9.7 fl (9.4-12.4); PLATELET COUNT 264 K/uL (150-450); RBC 2.91 M/uL (3.50-5.50); RDW-CV 18.6 % (11.9-14.6); WBC 3.5 K/uL (4.0-11.0)
[2016-07-09 10:03] LABS: ALBUMIN 3.5 gm/dL (3.5-5.0); ANION GAP 14.5 (10.0-19.0); CALCIUM 8.5 mg/dL (8.5-10.5); CREATININE 1.4 mg/dL (0.5-1.1); MAGNESIUM 1.8 mg/dL (1.8-2.6); PHOSPHORUS 4.1 mg/dL (2.5-4.9); POTASSIUM 4.5 mMol/L (3.7-5.1); TOTAL BILIRUBIN 0.4 mg/dL (0.0-1.5); TOTAL PROTEIN 6.6 g/dL (6.0-8.4)
[2016-07-09 10:59] LABS: ABSOLUTE NEUTROPHIL CT (ANC) 2.9 K/uL (1.8-7.8); BANDED NEUTROPHIL # 0.2 K/uL (0.0-0.1); BANDED NEUTROPHILS % 7 %; LYMPHOCYTE # 0.3 K/uL (0.8-4.0); LYMPHOCYTE % 8 %; MONOCYTE # 0.1 K/uL (0.0-1.0); SEGMENTED NEUTROPHIL # 2.7 K/uL (1.8-7.8); SEGMENTED NEUTROPHIL % 77 %
== END | disposition disaster alternative care site (69) ==
LOC: LHHCN 09:39
PROVIDERS: Internal Medicine Gastroenterology
DX: Z94.4 Liver transplant status (principal); Z79.899 Other long term (current) drug therapy; T86.9 Complication of unspecified transplanted organ and tissue

== ENCOUNTER → 2016-07-17 | Outpatient (CLI) | payer OTHER ==
[2016-07-17 09:47] LABS: HEMATOCRIT 30.4 % (33.0-46.0); HEMOGLOBIN 9.6 g/dL (10.0-15.0); MCH 31.8 pg (27.0-34.0); MCHC 31.6 gm/dL (32.0-36.5); MCV 100.7 fl (83.0-98.0); MPV 9.9 fl (9.4-12.4); PLATELET COUNT 245 K/uL (150-450); RBC 3.02 M/uL (3.50-5.50); RDW-CV 17.8 % (11.9-14.6); WBC 3.4 K/uL (4.0-11.0)
[2016-07-17 10:03] LABS: ALBUMIN 3.6 gm/dL (3.5-5.0); ANION GAP 12.6 (10.0-19.0); CALCIUM 8.6 mg/dL (8.5-10.5); CREATININE 1.6 mg/dL (0.5-1.1); MAGNESIUM 1.8 mg/dL (1.8-2.6); PHOSPHORUS 3.9 mg/dL (2.5-4.9); POTASSIUM 4.6 mMol/L (3.7-5.1); TOTAL BILIRUBIN 0.4 mg/dL (0.0-1.5); TOTAL PROTEIN 6.7 g/dL (6.0-8.4)
[2016-07-17 10:21] LABS: ABSOLUTE NEUTROPHIL CT (ANC) 2.9 K/uL (1.8-7.8); BANDED NEUTROPHIL # 0.3 K/uL (0.0-0.1); BANDED NEUTROPHILS % 10 %; LYMPHOCYTE # 0.3 K/uL (0.8-4.0); LYMPHOCYTE % 8 %; MONOCYTE # 0.2 K/uL (0.0-1.0); SEGMENTED NEUTROPHIL # 2.6 K/uL (1.8-7.8); SEGMENTED NEUTROPHIL % 76 %
== END | disposition disaster alternative care site (69) ==
LOC: LHHCN 09:40
PROVIDERS: Internal Medicine Gastroenterology
DX: Z94.4 Liver transplant status (principal); Z79.899 Other long term (current) drug therapy; T86.9 Complication of unspecified transplanted organ and tissue

== ENCOUNTER → 2016-07-31 | Outpatient (CLI) | payer OTHER ==
[2016-07-31 09:18] LABS: HEMATOCRIT 31.7 % (33.0-46.0); HEMOGLOBIN 9.9 g/dL (10.0-15.0); MCH 31.4 pg (27.0-34.0); MCHC 31.2 gm/dL (32.0-36.5); MCV 100.6 fl (83.0-98.0); MPV 10.1 fl (9.4-12.4); PLATELET COUNT 212 K/uL (150-450); RBC 3.15 M/uL (3.50-5.50); WBC 3.8 K/uL (4.0-11.0)
[2016-07-31 09:41] LABS: ALBUMIN 3.7 gm/dL (3.5-5.0); ANION GAP 12.4 (10.0-19.0); CALCIUM 8.8 mg/dL (8.5-10.5); CREATININE 1.6 mg/dL (0.5-1.1); MAGNESIUM 1.7 mg/dL (1.8-2.6); PHOSPHORUS 3.8 mg/dL (2.5-4.9); POTASSIUM 4.4 mMol/L (3.7-5.1); TOTAL PROTEIN 6.8 g/dL (6.0-8.4)
[2016-07-31 09:47] LABS: TOTAL BILIRUBIN 0.3 mg/dL (0.0-1.5)
[2016-07-31 10:06] LABS: ABSOLUTE NEUTROPHIL CT (ANC) 3.2 K/uL (1.8-7.8); BANDED NEUTROPHIL # 0.3 K/uL (0.0-0.1); BANDED NEUTROPHILS % 7 %; LYMPHOCYTE # 0.5 K/uL (0.8-4.0); LYMPHOCYTE % 12 %; MONOCYTE # 0.1 K/uL (0.0-1.0); SEGMENTED NEUTROPHIL % 78 %
== END | disposition disaster alternative care site (69) ==
LOC: LHHCN 09:05
PROVIDERS: Internal Medicine Gastroenterology
DX: Z94.4 Liver transplant status (principal); Z79.899 Other long term (current) drug therapy; T86.9 Complication of unspecified transplanted organ and tissue

== ENCOUNTER → 2016-08-03 | Outpatient (CLI) | payer OTHER ==
[2016-08-03 09:07] LABS: HEMATOCRIT 31.6 % (33.0-46.0); HEMOGLOBIN 10.3 g/dL (10.0-15.0); MCHC 32.6 gm/dL (32.0-36.5); MCV 101.3 fl (83.0-98.0); MPV 10.9 fl (9.4-12.4); RBC 3.12 M/uL (3.50-5.50); RDW-CV 15.9 % (11.9-14.6); WBC 3.9 K/uL (4.0-11.0)
[2016-08-03 09:29] LABS: ANION GAP 13.3 (10.0-19.0); CALCIUM 8.8 mg/dL (8.5-10.5); CREATININE 1.8 mg/dL (0.5-1.1); POTASSIUM 4.3 mMol/L (3.7-5.1); TOTAL PROTEIN 7.1 g/dL (6.0-8.4)
[2016-08-03 09:30] LABS: TOTAL BILIRUBIN 0.4 mg/dL (0.0-1.5)
== END | disposition disaster alternative care site (69) ==
LOC: LHHCN 08:53
PROVIDERS: Internal Medicine Gastroenterology
DX: Z94.4 Liver transplant status (principal); Z79.899 Other long term (current) drug therapy; T86.9 Complication of unspecified transplanted organ and tissue

== ENCOUNTER → 2016-08-14 | Outpatient (CLI) | payer OTHER ==
[2016-08-14 10:17] LABS: HEMATOCRIT 32.7 % (33.0-46.0); HEMOGLOBIN 10.7 g/dL (10.0-15.0); MCH 32.8 pg (27.0-34.0); MCHC 32.7 gm/dL (32.0-36.5); MCV 100.3 fl (83.0-98.0); MPV 10.7 fl (9.4-12.4); RBC 3.26 M/uL (3.50-5.50); RDW-CV 14.6 % (11.9-14.6); WBC 6.6 K/uL (4.0-11.0)
[2016-08-14 10:19] LABS: PLATELET COUNT 230 K/uL (150-450)
[2016-08-14 10:39] LABS: ALBUMIN 3.9 gm/dL (3.5-5.0); ANION GAP 14.5 (10.0-19.0); CREATININE 1.9 mg/dL (0.5-1.1); PHOSPHORUS 3.9 mg/dL (2.5-4.9); POTASSIUM 4.5 mMol/L (3.7-5.1); TOTAL PROTEIN 7.2 g/dL (6.0-8.4)
[2016-08-14 10:41] LABS: TOTAL BILIRUBIN 0.3 mg/dL (0.0-1.5)
[2016-08-14 11:17] LABS: ABSOLUTE NEUTROPHIL CT (ANC) 4.9 K/uL (1.8-7.8); BANDED NEUTROPHIL # 0.7 K/uL (0.0-0.1); BANDED NEUTROPHILS % 10 %; LYMPHOCYTE # 0.8 K/uL (0.8-4.0); LYMPHOCYTE % 12 %; MONOCYTE # 0.7 K/uL (0.0-1.0); SEGMENTED NEUTROPHIL # 4.2 K/uL (1.8-7.8); SEGMENTED NEUTROPHIL % 64 %
== END | disposition disaster alternative care site (69) ==
LOC: LHHCN 09:53
PROVIDERS: Family Medicine
DX: Z48.23 Encounter for aftercare following liver transplant (principal); Z79.899 Other long term (current) drug therapy

== ENCOUNTER → 2016-08-27 | Outpatient (CLI) | payer OTHER ==
[2016-08-27 11:05] LABS: HEMATOCRIT 32.8 % (33.0-46.0); HEMOGLOBIN 10.6 g/dL (10.0-15.0); MCH 32.6 pg (27.0-34.0); MCHC 32.3 gm/dL (32.0-36.5); MCV 100.9 fl (83.0-98.0); MPV 10.5 fl (9.4-12.4); PLATELET COUNT 207 K/uL (150-450); RBC 3.25 M/uL (3.50-5.50); RDW-CV 13.9 % (11.9-14.6); WBC 6.8 K/uL (4.0-11.0)
[2016-08-27 11:25] LABS: ALBUMIN 3.7 gm/dL (3.5-5.0); CALCIUM 8.6 mg/dL (8.5-10.5); CREATININE 1.4 mg/dL (0.5-1.1); PHOSPHORUS 3.6 mg/dL (2.5-4.9); POTASSIUM 3.5 mMol/L (3.7-5.1); TOTAL BILIRUBIN 0.3 mg/dL (0.0-1.5); TOTAL PROTEIN 6.7 g/dL (6.0-8.4)
[2016-08-27 11:30] LABS: ANION GAP 11.5 (10.0-19.0)
[2016-08-27 12:02] LABS: ABSOLUTE NEUTROPHIL CT (ANC) 5.8 K/uL (1.8-7.8); BANDED NEUTROPHIL # 0.6 K/uL (0.0-0.1); BANDED NEUTROPHILS % 9 %; LYMPHOCYTE # 0.4 K/uL (0.8-4.0); LYMPHOCYTE % 6 %; MONOCYTE # 0.4 K/uL (0.0-1.0); SEGMENTED NEUTROPHIL # 5.2 K/uL (1.8-7.8); SEGMENTED NEUTROPHIL % 76 %
== END | disposition disaster alternative care site (69) ==
LOC: LHHCN 10:52
PROVIDERS: Family Medicine
DX: Z48.23 Encounter for aftercare following liver transplant (principal); Z79.899 Other long term (current) drug therapy

== ENCOUNTER → 2016-09-10 | Outpatient (CLI) | payer OTHER ==
[2016-09-10 11:12] LABS: HEMATOCRIT 32.3 % (33.0-46.0); HEMOGLOBIN 10.3 g/dL (10.0-15.0); MCH 32.1 pg (27.0-34.0); MCHC 31.9 gm/dL (32.0-36.5); MCV 100.6 fl (83.0-98.0); MPV 10.2 fl (9.4-12.4); PLATELET COUNT 201 K/uL (150-450); RBC 3.21 M/uL (3.50-5.50); RDW-CV 13.2 % (11.9-14.6); WBC 6.1 K/uL (4.0-11.0)
[2016-09-10 11:35] LABS: ALBUMIN 3.6 gm/dL (3.5-5.0); ANION GAP 11.7 (10.0-19.0); CALCIUM 8.6 mg/dL (8.5-10.5); CREATININE 1.4 mg/dL (0.5-1.1); MAGNESIUM 2.1 mg/dL (1.8-2.6); POTASSIUM 3.7 mMol/L (3.7-5.1); TOTAL BILIRUBIN 0.4 mg/dL (0.0-1.5); TOTAL PROTEIN 6.6 g/dL (6.0-8.4)
[2016-09-10 11:47] LABS: ABSOLUTE NEUTROPHIL CT (ANC) 4.8 K/uL (1.8-7.8); BANDED NEUTROPHIL # 0.9 K/uL (0.0-0.1); BANDED NEUTROPHILS % 15 %; LYMPHOCYTE # 0.4 K/uL (0.8-4.0); LYMPHOCYTE % 7 %; MONOCYTE # 0.7 K/uL (0.0-1.0); SEGMENTED NEUTROPHIL # 3.9 K/uL (1.8-7.8); SEGMENTED NEUTROPHIL % 64 %
== END | disposition disaster alternative care site (69) ==
LOC: LHHCN 11:01
PROVIDERS: Family Medicine
DX: Z79.899 Other long term (current) drug therapy (principal); Z48.23 Encounter for aftercare following liver transplant; T86.9 Complication of unspecified transplanted organ and tissue

== ENCOUNTER → 2016-09-24 | Outpatient (CLI) | payer OTHER ==
[2016-09-24 12:08] LABS: HEMATOCRIT 32.8 % (33.0-46.0); HEMOGLOBIN 10.3 g/dL (10.0-15.0); MCHC 31.4 gm/dL (32.0-36.5); MCV 101.9 fl (83.0-98.0); MPV 9.9 fl (9.4-12.4); RBC 3.22 M/uL (3.50-5.50); RDW-CV 13.3 % (11.9-14.6)
[2016-09-24 12:23] LABS: ALBUMIN 3.7 gm/dL (3.5-5.0); ANION GAP 12.9 (10.0-19.0); CALCIUM 8.5 mg/dL (8.5-10.5); CREATININE 1.4 mg/dL (0.5-1.1); PHOSPHORUS 3.7 mg/dL (2.5-4.9); POTASSIUM 3.9 mMol/L (3.7-5.1); TOTAL PROTEIN 6.9 g/dL (6.0-8.4)
[2016-09-24 12:26] LABS: TOTAL BILIRUBIN 0.3 mg/dL (0.0-1.5)
== END ==
LOC: LHHCN 11:51
PROVIDERS: Family Medicine
DX: Z48.23 Encounter for aftercare following liver transplant (principal); Z79.899 Other long term (current) drug therapy

== ENCOUNTER → 2016-10-16 | Outpatient (CLI) | payer MEDICARE, OTHER ==
[2016-10-16 10:47] LABS: HEMATOCRIT 32.2 % (33.0-46.0); HEMOGLOBIN 10.1 g/dL (10.0-15.0); MCH 31.1 pg (27.0-34.0); MCHC 31.4 gm/dL (32.0-36.5); MCV 99.1 fl (83.0-98.0); MPV 9.6 fl (9.4-12.4); RBC 3.25 M/uL (3.50-5.50); RDW-CV 12.9 % (11.9-14.6)
[2016-10-16 10:52] LABS: PLATELET COUNT 247 K/uL (150-450); WBC 1.8 K/uL (4.0-11.0)
[2016-10-16 11:15] LABS: ANION GAP 12.3 (10.0-19.0); CALCIUM 8.7 mg/dL (8.5-10.5); CREATININE 1.3 mg/dL (0.5-1.1); POTASSIUM 4.3 mMol/L (3.7-5.1)
[2016-10-16 11:18] LABS: ABSOLUTE NEUTROPHIL CT (ANC) 0.8 K/uL (1.8-7.8); BANDED NEUTROPHIL # 0.1 K/uL (0.0-0.1); BANDED NEUTROPHILS % 7 %; LYMPHOCYTE # 0.5 K/uL (0.8-4.0); LYMPHOCYTE % 25 %; MONOCYTE # 0.5 K/uL (0.0-1.0); SEGMENTED NEUTROPHIL # 0.7 K/uL (1.8-7.8); SEGMENTED NEUTROPHIL % 38 %
== END ==
LOC: LHHCN 10:38
PROVIDERS: Family Medicine
DX: K75.4 Autoimmune hepatitis (principal); Z79.2 Long term (current) use of antibiotics; Z79.899 Other long term (current) drug therapy

== ENCOUNTER → 2016-10-18 | Outpatient (CLI) | payer MEDICARE, OTHER ==
[2016-10-18 11:30] LABS: HEMATOCRIT 31.7 % (33.0-46.0); MCH 31.3 pg (27.0-34.0); MCHC 31.5 gm/dL (32.0-36.5); MCV 99.4 fl (83.0-98.0); MPV 9.6 fl (9.4-12.4); PLATELET COUNT 235 K/uL (150-450); RBC 3.19 M/uL (3.50-5.50); RDW-CV 12.9 % (11.9-14.6)
[2016-10-18 12:07] LABS: ABSOLUTE NEUTROPHIL CT (ANC) 1.2 K/uL (1.8-7.8); BANDED NEUTROPHIL # 0.2 K/uL (0.0-0.1); BANDED NEUTROPHILS % 8 %; LYMPHOCYTE # 0.4 K/uL (0.8-4.0); LYMPHOCYTE % 22 %; MONOCYTE # 0.3 K/uL (0.0-1.0); SEGMENTED NEUTROPHIL % 51 %
== END ==
LOC: LHHCN 10:59
DX: T86.43 Liver transplant infection (principal); A52.3 Neurosyphilis, unspecified; Z79.2 Long term (current) use of antibiotics

== ENCOUNTER → 2016-10-23 | Outpatient (CLI) | payer MEDICARE, OTHER ==
[2016-10-23 11:18] LABS: HEMATOCRIT 31.3 % (33.0-46.0); HEMOGLOBIN 9.8 g/dL (10.0-15.0); MCH 31.1 pg (27.0-34.0); MCHC 31.3 gm/dL (32.0-36.5); MCV 99.4 fl (83.0-98.0); MPV 10.1 fl (9.4-12.4); PLATELET COUNT 209 K/uL (150-450); RBC 3.15 M/uL (3.50-5.50); RDW-CV 12.9 % (11.9-14.6); WBC 3.5 K/uL (4.0-11.0)
[2016-10-23 11:24] LABS: ANION GAP 11.5 (10.0-19.0); CALCIUM 8.6 mg/dL (8.5-10.5); CREATININE 1.4 mg/dL (0.5-1.1); MAGNESIUM 2.1 mg/dL (1.8-2.6); PHOSPHORUS 3.5 mg/dL (2.5-4.9); POTASSIUM 4.5 mMol/L (3.7-5.1); TOTAL PROTEIN 6.3 g/dL (6.0-8.4)
[2016-10-23 11:26] LABS: TOTAL BILIRUBIN 0.2 mg/dL (0.0-1.5)
[2016-10-23 11:53] LABS: ABSOLUTE NEUTROPHIL CT (ANC) 2.7 K/uL (1.8-7.8); BANDED NEUTROPHIL # 0.3 K/uL (0.0-0.1); BANDED NEUTROPHILS % 9 %; LYMPHOCYTE # 0.2 K/uL (0.8-4.0); LYMPHOCYTE % 7 %; MONOCYTE # 0.4 K/uL (0.0-1.0); SEGMENTED NEUTROPHIL # 2.4 K/uL (1.8-7.8); SEGMENTED NEUTROPHIL % 69 %
== END ==
LOC: LHHCN 10:59
DX: T86.43 Liver transplant infection (principal); A52.3 Neurosyphilis, unspecified; Z79.2 Long term (current) use of antibiotics

== ENCOUNTER → 2016-10-29 | Outpatient (CLI) | payer MEDICARE, OTHER ==
[2016-10-29 10:02] LABS: HEMATOCRIT 32.8 % (33.0-46.0); HEMOGLOBIN 10.5 g/dL (10.0-15.0); MCH 31.8 pg (27.0-34.0); MCV 99.4 fl (83.0-98.0); MPV 10.4 fl (9.4-12.4); PLATELET COUNT 211 K/uL (150-450); WBC 3.7 K/uL (4.0-11.0)
[2016-10-29 10:20] LABS: ALBUMIN 3.1 gm/dL (3.5-5.0); ANION GAP 11.3 (10.0-19.0); CALCIUM 8.7 mg/dL (8.5-10.5); CREATININE 1.2 mg/dL (0.5-1.1); MAGNESIUM 2.2 mg/dL (1.8-2.6); PHOSPHORUS 3.8 mg/dL (2.5-4.9); POTASSIUM 4.3 mMol/L (3.7-5.1); TOTAL PROTEIN 6.6 g/dL (6.0-8.4)
[2016-10-29 10:24] LABS: TOTAL BILIRUBIN 0.3 mg/dL (0.0-1.5)
[2016-10-29 10:42] LABS: ABSOLUTE NEUTROPHIL CT (ANC) 2.7 K/uL (1.8-7.8); BANDED NEUTROPHIL # 0.3 K/uL (0.0-0.1); BANDED NEUTROPHILS % 8 %; LYMPHOCYTE # 0.5 K/uL (0.8-4.0); LYMPHOCYTE % 14 %; MONOCYTE # 0.4 K/uL (0.0-1.0); SEGMENTED NEUTROPHIL # 2.4 K/uL (1.8-7.8); SEGMENTED NEUTROPHIL % 66 %
== END ==
LOC: LHHCN 09:40
DX: A52.3 Neurosyphilis, unspecified (principal); T86.43 Liver transplant infection; Z79.2 Long term (current) use of antibiotics